=== PATIENT | male | born 1970 | race Caucasian/White ===

== ENCOUNTER 2023-09-03 15:40 | Observation (INO) ==
[2023-09-03] MEDS ORDERED: Dextrose 50% Syringe 50 ml 25 GM/50 ML SYRINGE IV PUSH PRN (19:58)
[2023-09-03 21:02] LABS: High Sensitivity Troponin 1 Hr 5 pg/mL (<20)
[2023-09-03] MEDS: Calcium Carb (TUMS) 500 mg CHEW TAB PO ONE (21:36)
[2023-09-04 05:26] LABS: ABS Basophils 0.1 10^3/uL (0.0-0.1); ABS Eosinophils 0.3 10^3/uL (0.0-0.5); ABS Lymphocytes 1.8 10^3/uL (1.0-4.8); ABS Monocytes 0.6 10^3/uL (0.0-1.1); ABS Neutrophils 4.5 10^3/uL (1.5-7.6); ABS Nucleated RBC 0.01 10^3/ul; Eosinophil % 3.9 %; Hematocrit 39.1 % (38-53); Hemoglobin 13.6 g/dL (13.2-16.3); Lymphocyte % 25.1 %; Mean Corpuscular Hgb Conc 34.8 g/dL (31-36); Mean Corpuscular Volume 92.2 fL (80-97); Mean Platelet Volume 8.9 fL (7.5-11.2); Nucleated Red Blood Cells % 0.1 %/100WBC (0.0-0.8); Platelet Count 220 10^3/uL (150-450); Red Blood Count 4.24 10^6/uL (4.06-5.63); Red Cell Distribution Width 13.8 % (12-17); White Blood Count 7.3 10^3/uL (3.6-10.2)
[2023-09-04 06:01] LABS: Calcium 9.4 mg/dL (8.6-10.3); Creatinine, Serum 0.65 mg/dL (0.67-1.17); Magnesium 1.8 mg/dL (1.9-2.7); Potassium 4.4 mmol/L (3.5-5.0); eGFR CKD-EPI 113.4 (>60)
[2023-09-04] MEDS: Enoxaparin 40 MG/0.4 ML SYR SUBCUT SCH (07:31)
[2023-09-04] MEDS: Magnesium Sulfate 2 gm BAG 2 GM/50 ML BAG IVPB ONE (07:31)
[2023-09-04] MEDS ORDERED: Regadenoson 0.4 MG/5 ML SYRINGE ONE (08:44)
[2023-09-04] MEDS ORDERED: Aminophylline 25 MG/ML VIAL ONE (08:44)
[2023-09-04 13:39] LABS: HDL Cholesterol 40.7 mg/dL
[2023-09-04] MEDS ORDERED: Sulfur Hexaflouride MICROSPHR 25 MG VIAL ONE (13:41)
[2023-09-04] MEDS: Sulfur Hexaflouride MICROSPHR 25 MG VIAL IV ONE (13:48)
[2023-09-04 15:34] VITALS: BP 165/97
== END 2023-09-04 15:55 | disposition home or self-care (01) ==
LOC: MEDTELE → SUATTDRO 18:31
PROVIDERS: ADMIT Family Medicine; ATTEND Hospitalist